=== PATIENT | female | born 1945 | race Asian ===

== ENCOUNTER → 2017-04-02 | Outpatient (CLI) | payer MEDICARE, OTHER ==
[2017-04-02 12:34] LABS: BASOPHILS % (AUTO) 0.6 % (0.0-2.0); EOSINOPHILS % (AUTO) 3.3 % (1.0-6.0); HEMATOCRIT 39.3 % (36-46); LYMPHOCYTES # (AUTO) 2.3 K/uL (1.0-4.8); LYMPHOCYTES % (AUTO) 31.7 % (22.0-44.0); MEAN CORPUSCULAR HEMOGLOBIN 29.6 pg (26.0-34.0); MEAN CORPUSCULAR HGB CONC 33.1 G/dL (31.0-37.0); MEAN CORPUSCULAR VOLUME 90 fL (80-100); MONOCYTES # (AUTO) 0.3 K/uL (0.1-1.0); MONOCYTES % (AUTO) 4.6 % (2.0-9.0); NEUTROPHILS # (AUTO) 4.3 K/uL (1.8-7.7); NEUTROPHILS % (AUTO) 59.8 % (40.0-70.0); PLATELET COUNT (AUTO) 320 K/uL (150-450); RED BLOOD CELL COUNT(AUTO) 4.39 MIL/uL (4.00-5.20); RED CELL DISTRIBUTION WIDTH 14.8 % (11.5-14.5); WHITE BLOOD COUNT (AUTO) 7.2 K/uL (4.5-11.0)
[2017-04-02 12:46] LABS: PROTHROMBIN TIME 10.5 SEC (9.4-11.6)
== END | disposition home or self-care (01) ==
LOC: LABPV 09:34
PROVIDERS: ATTEND Internal Medicine Nephrology
DX: N18.3 Chronic kidney disease, stage 3 (moderate) (principal); M10.9 Gout, unspecified; E78.5 Hyperlipidemia, unspecified

== ENCOUNTER 2017-09-30 21:38 | Emergency (ER) | payer MEDICARE, OTHER ==
[~2017-09-30] VITALS: Ht 152.4 cm; Wt 59.1 kg
[2017-09-30] MEDS ORDERED: DONE5TAB5 PO (21:59)
[2017-09-30] MEDS ORDERED: MIDO5TAB23 PO (21:59)
[2017-09-30] MEDS ORDERED: ATOR40TA28 PO (21:59)
[2017-09-30] MEDS ORDERED: ASPI-556 PO (21:59)
[2017-09-30] MEDS ORDERED: COLC0.6T67 PO (21:59)
[2017-09-30] MEDS ORDERED: LACT30L PO (21:59)
[2017-09-30] MEDS ORDERED: HYD25 PO (21:59)
[2017-09-30] MEDS ORDERED: OMEG-135 PO (21:59)
[2017-09-30] MEDS ORDERED: MIRALAX PO (21:59)
[2017-09-30] MEDS ORDERED: MEMA10TA11 PO (21:59)
[2017-09-30] MEDS ORDERED: ENAL10TA2 PO (21:59)
[2017-09-30] MEDS ORDERED: METO-296 PO (21:59)
[2017-09-30] MEDS ORDERED: BUSP10TA23 PO (21:59)
[2017-09-30] MEDS ORDERED: ACET-2247 PO (21:59)
[2017-09-30] MEDS ORDERED: CARB1TAB41 PO (21:59)
[2017-09-30] MEDS ORDERED: ALLO100T PO (21:59)
[2017-09-30] MEDS ORDERED: SERT50TA12 PO (21:59)
[2017-09-30] MEDS ORDERED: NIFE30TA5 PO (21:59)
[2017-09-30] MEDS ORDERED: DiphenhydrAMINE HCL 50 MG/ML VIAL IVP ONE (22:30)
[2017-09-30] MEDS ORDERED: METOCLOPRAMIDE HCL 5 MG/ML 2 ML VIAL IVP ONE (22:30)
[2017-09-30] MEDS ORDERED: KETOROLAC TROMETHAMINE 30 MG/ML VIAL IVP ONE (22:30)
[2017-10-01] MEDS ORDERED: FentaNYL CITRATE-PF 100 MCG/2 ML VIAL IVP ONE (00:15)
[2017-10-01 01:10] VITALS: BP 164/95
== END 2017-10-01 01:32 | disposition home or self-care (01) ==
LOC: EMS 21:38
DX: I10 Essential (primary) hypertension (principal); K21.9 Gastro-esophageal reflux disease without esophagitis; E78.00 Pure hypercholesterolemia, unspecified; Z79.82 Long term (current) use of aspirin
CPT/HCPCS: 70450; 96374; 96375; 99284; J1200; J1885; J2765; J3010

== ENCOUNTER → 2018-05-06 | Outpatient (CLI) | payer MEDICARE, OTHER ==
[~2018-05-06] MED LIST: ACET-2247 PO; ALLO100T PO; ASPI-556 PO; ATOR40TA28 PO; BUSP10TA23 PO; CARB1TAB41 PO; COLC0.6T67 PO; DONE5TAB5 PO; ENAL10TA2 PO; HYD25 PO; LACT30L PO; MEMA10TA11 PO; METO-296 PO; MIDO5TAB23 PO; MIRALAX PO; NIFE30TA5 PO; OMEG-135 PO; SERT50TA12 PO
== END | disposition home or self-care (01) ==
LOC: RADMN 14:36
PROVIDERS: ATTEND Specialist
DX: I67.82 Cerebral ischemia (principal)
CPT/HCPCS: 70551